=== PATIENT | male | born 1960 | race Caucasian/White ===

== ENCOUNTER 2019-10-14 10:19 | Outpatient (CLI) | payer SELFPAY ==
[2019-10-14 13:25] LABS: Calculated LDL 93 mg/dL; Cholesterol 152 mg/dL (<200); HDL Cholesterol 28 mg/dL (40-60); Triglyceride 157 mg/dL (<150)
== END 2019-10-14 10:39 ==
PROVIDERS: Visit Provider Family Medicine
DX: E78.6 Lipoprotein deficiency (principal)
CPT/HCPCS: 36415; 80061

== ENCOUNTER 2022-12-12 16:26 | Outpatient (CLI) | payer SELFPAY ==
[2022-12-12 15:34] LABS: ALT 34 U/L (16-63); AST 13 U/L (15-37); Albumin 3.9 g/dL (3.4-5.0); Alkaline Phosphatase 74 U/L (46-116); Anion Gap 8.9 mmol/L (3-11); BUN 17 mg/dL (7-18); Bilirubin, Total 0.4 mg/dL (0.2-1.0); CO2 27.1 mmol/L (21.0-32.0); CREATININE 0.9 mg/dL (0.70-1.30); Calcium 8.5 mg/dL (8.5-10.1); Calculated LDL 80 mg/dL (<100); Chloride 106 mmol/L (98-107); Cholesterol 160 mg/dL (<200); Estimated GFR 95.97 (mL/min/1.73m2); Glucose 90 mg/dL (74-106); HDL Cholesterol 32 mg/dL (40-60); Sodium 142 mmol/L (136-145); Total Protein 7.3 g/dL (6.4-8.2); Triglyceride 244 mg/dL (<150)
[2022-12-12 22:04] LABS: PSA, Screening 2.1 ng/mL (<=4.5)
[2022-12-13 10:07] LABS: Hepatitis C Ab w Rflx HCV PCR Negative (Negative)
== END 2022-12-12 16:27 | disposition home or self-care (01) ==
LOC: LBO 16:27
PROVIDERS: PCP Family Medicine; Visit Provider Family Medicine
DX: Z00.00 Encounter for general adult medical examination without abnormal findings (principal); Z13.228 Encounter for screening for other metabolic disorders; Z13.6 Encounter for screening for cardiovascular disorders; Z11.59 Encounter for screening for other viral diseases; Z12.5 Encounter for screening for malignant neoplasm of prostate
CPT/HCPCS: 36415; 80053; 80061; 84153; 86803

== ENCOUNTER 2024-12-19 00:24 | Outpatient (CLI) | payer MEDICARE, SELFPAY ==
[2024-12-19 12:52] LABS: Anion Gap 8.5 mmol/L (3-11); BUN 15 mg/dL (7-18); CO2 28.5 mmol/L (21.0-32.0); CREATININE 0.9 mg/dL (0.70-1.30); Calcium 9.1 mg/dL (8.5-10.1); Calculated LDL 84 mg/dL (<100); Chloride 107 mmol/L (98-107); Cholesterol 141 mg/dL (<200); Estimated GFR 94.78 (mL/min/1.73m2); Glucose 112 mg/dL (74-106); HDL Cholesterol 37 mg/dL (>or=40); Potassium 3.8 mmol/L (3.5-5.1); Sodium 144 mmol/L (136-145); Triglyceride 102 mg/dL (<150)
[2024-12-19 17:27] LABS: PSA, Screening 1.6 ng/mL (<=4.5)
== END 2024-12-19 00:25 | disposition home or self-care (01) ==
LOC: LOS 00:24
PROVIDERS: PCP Family Medicine; Visit Provider Family Medicine
DX: Z13.1 Encounter for screening for diabetes mellitus (principal); Z13.6 Encounter for screening for cardiovascular disorders; Z00.00 Encounter for general adult medical examination without abnormal findings; Z12.5 Encounter for screening for malignant neoplasm of prostate
CPT/HCPCS: 36415; 80048; 80061; 84153